=== PATIENT | female | born 1995 | race African-American/Black ===

== ENCOUNTER 2025-03-01 09:08 | Emergency (ER) | payer OTHER, SELFPAY ==
--- NOTE | ~2025-03-01 | US_ITS ---
EXAMINATION: US FIRST TRIMESTER OB HISTORY: abd pain, beta quant + TECHNIQUE: Endovaginal scanning was performed. FINDINGS: There is a single intrauterine . There is a hypoechoic area adjacent to the gestational sac measuring 7 x 5 x 15 mm which likely represents a small subchorionic hemorrhage. AUA = 6 weeks 4 days JULIANNE(AUA) = 10/22/2025 LMP = 01/20/2025 GA(LMP) = 5 weeks 5 days JULIANNE(LMP) = 10/27/2025 CRL: 0.63 cm Yolk Sac: seen FHR: 110 bpm Right ovary: The right ovary measures 3.7 x 2.1 x 2.5 cm and is unremarkable. There is a small amount of free fluid in the right adnexa. Left ovary: The left ovary measures 2.5 x 1.4 x 2.0 cm and is unremarkable. Cul-de-sac: No free fluid US/US OB <= 14 weeks fetus IMPRESSION: Single, live intrauterine of estimated gestational age 6 weeks, 4 days. Small subchorionic hemorrhage. Follow-up is recommended. Electronically signed by: Emigdio Angel MD 03/01/2025 03:15 PM EDT
[2025-03-01 09:13] VITALS: BP 104/57; PULSE 64; RESP 16; TEMP 36.8; O2SAT 100; BMI 22.7
[2025-03-01 09:55] LABS: IDNOW Serial# 08D9AD1C; Influenza B2 Negative (Negative)
[2025-03-01 09:55] LABS: COVID-19 Test Negative (Negative); IDNOW Serial# 6674DD1D
--- NOTE | 2025-03-01 11:17 | ED.GENADULT ---
HPI - General Adult General Chief complaint: Upper Respiratory Symptoms Stated complaint: Cough, sweating Time Seen by Provider: 03/01/25 11:20 Source: patient and RN notes reviewed Mode of arrival: ambulatory Limitations: no limitations History of Present Illness ED Provider: Griselda Gutierrez PA-C [facility] narrative: This is a 29-year-old female who presents emergency department with concerns of cough, congestion, nausea, vomiting, over the last week. She states that her last menstrual period was about 1 month ago. She does report possible chance of . She denies any abnormal vaginal bleeding or discharge. She is sexually active. No other complaints or concerns at this time. MD complaint: Nausea, cough Onset (ago): week(s) Pain Consistency: constant Relieving factors: none Exacerbating factors: none Associated symptoms: denies other symptoms Treatments prior to arrival: none Related Data Allergies Allergy/AdvReac Type Severity Reaction Status Date / Time No Known Allergies Allergy Verified 03/01/25 09:15 Review of Systems Review of Systems: Constitutional : No Fever, No Chills ENT/Mouth : No sore throat, No Rhinorrhea Eyes: No Eye Pain, No Swelling, No Redness Cardiovascular : No Chest Pain, No SOB Respiratory : + Cough, No Sputum Gastrointestinal : + Nausea, +Vomiting, No Diarrhea, No abdominal Pain Genitourinary : No Dysuria, No Hematuria Musculoskeletal : No joint pain, No Myalgias, No Joint Swelling Skin : No Skin Lesions Neuro : No Weakness, No Numbness, No Headache All other systems reviewed and are negative Yes all other systems are reviewed and are negative Constitutional: Constitutional: Reports as per [facility] Social History Social History Alcohol intake: current Alcohol intake frequency: a few times a month Smoked in Last 30 Days: No Use of substances other than those prescribed or required for medical reasons: Yes Substance Use Type: IV Drugs Advance Directives: No Advance Directives Information Provided: Yes Physical Exam ED Vital Signs: Vital Signs - 24 hr 03/01/25 09:13 03/01/25 11:52 Temperature 98.2 F 97.3 F Pulse Rate 64 60 Respiratory Rate 16 20 Blood Pressure 104/57 L 102/54 L Pulse Oximetry 100 100 Oxygen Delivery Method Room Air Room Air BMI result Body Mass Index 22.7 Const General: cooperative, comfortable and no acute distress Orientation/consciousness: patient oriented x3 Limitations: no limitations HENMT Head: Yes normal to inspection, Yes normocephalic and Yes atraumatic Ears: hearing grossly normal bilaterally General nose exam: Normal external nose present Face and sinus: Yes normal facial exam Mouth: Normal oral and palatal mucosa present, oropharynx normal and moist mucous membranes Throat: Yes posterior oropharynx normal Eyes General: appearance normal, both eyes and all related structures Eyelids: Yes eyelids normal Conjunctivae: conjunctivae normal Sclerae: sclerae normal Pupils: Equal, round and reactive pupils present EOM: EOMs intact bilaterally Neck Neck: Yes normal visual inspection, Yes full ROM and Yes no lymphadenopathy Lymphatic: no lymphadenopathy noted Chest Chest palpation & inspection: normal inspection of the chest Resp Effort & Inspection: normal respiratory effort and able to speak in complete sentences Auscultation: clear to auscultation bilaterally, no crackles, no rales, no rhonchi and no wheezes Cardio Rate: regular rate Rhythm: regular rhythm Heart sounds: S1 normal heart sound present and S2 normal heart sound present GI Other: Abdomen is soft, with mild tenderness palpation in the suprapubic region. Inspection: Yes normal to inspection Skin General skin exam: no rashes or lesions noted Trauma: no lacerations or abrasions Wounds: no wounds Neuro General: patient oriented x3 and moves all extremities Cranial nerves: Yes Equal, round and reactive pupils present Extrem General: Yes normal to inspection Right upper extremity: normal to inspection Left upper extremity: normal to inspection Right lower extremity: normal to inspection Left lower extremity: normal to inspection Course Course Course Narrative: This is an RME: Additional HPI, ROS, PE not included below will be deferred to primary provider. RME assessment and note performed by: Griselda Gutierrez PA-C This is a [id number], with no known medical problems, who presents to the ER with concerns of cough, cold sweats, nausea, vomiting, chills, decreased appetite. Also reporting diffuse body aches. Unable to keep anything down. Also endorsing epigastric pain. No diarrhea. No sick contacts. Plan: Labs, UA, IVF, IV zofran Medications Administered Discontinued Medications Generic Name Dose Route Start Last Admin Trade Name Freq PRN Reason Stop Dose Admin Sodium Chloride 1,000 mls @ 999 mls/hr 03/01/25 11:18 03/01/25 12:42 Ns IV 03/01/25 12:18 Infused .Q1H1M ONE Infusion Sodium Chloride 1,000 mls @ 999 mls/hr 03/01/25 12:30 03/01/25 13:55 Ns IV 03/01/25 13:30 Infused .Q1H1M ONE Infusion Ondansetron HCl 4 mg 03/01/25 11:18 03/01/25 11:29 Ondansetron Hcl 4 Mg/2 Ml Vial IVPUSH 03/01/25 11:19 4 mg ONCE ONE Administration Medical Decision Making Medical Decision Making [facility] Narrative: This is a 29-year-old female who presents emergency department with complaints of cough, congestion, sweats, nausea and vomiting. Also reporting some suprapubic pain. She states that she has been unable to tolerate p.o. secondary to nausea and vomiting. Differential diagnoses include electrolyte derangement, gastritis, gastroenteritis, , UTI. Labs were obtained, no leukocytosis, stable H&H, chemistry revealing no significant electrolyte derangement. She was treated with a dose of IV Zofran and IV fluids. Turns out that patient is straining . She was on aware that this was the case. Given that she does have some suprapubic pain, OB ultrasound ordered to rule out ectopic . Patient returns back from ultrasound with out the results. She states that she must leave. I discussed with patient that we can not guarantee that without the radiologist reading that report that there was no issue with the fetus. We can not confirm location of the fetus. She states that the heavy equipment service technician had told her that everything looked good and she would like to be discharged now. I discussed with patient that she will be leaving against medical advice. I state that we can not guarantee that this is a intrauterine and that it would be in her best interest to stay to confirm that there is no problems with the . She states that she must leave she understands the risks and consequences of leaving without completing treatment. Advised follow-up with OBGYN. She is feeling much better. She understands and agrees with plan. Patient stable for discharge. Differential Diagnosis Differential Diagnoses: The differential diagnosis associated with the presentation includes See above Admission/Observation Consideration of admission/observation: Escalation of care including admission/observation considered Lab Data [facility] Lab Attestation statement: I reviewed the patient's lab results. See [facility] 03/01/25 11:28 03/01/25 11:28 Labs: Lab Results 03/01/25 03/01/25 03/01/25 Range/Units 09:16 09:19 11:28 WBC 7.7 (4.8-10.8) X10*3/uL RBC 4.41 (4.20-5.50) X10*6/uL Hgb 12.7 (12.0-16.0) g/dl Hct 36.9 L (37.0-47.0) % MCV 83.7 (80.0-98.0) fL MCH 28.8 (27.0-33.0) pg MCHC 34.4 (31.0-35.0) g/dl RDW 13.7 (11.0-16.0) % Plt Count 280 (160-400) X10*3/uL MPV 9.6 (9.4-12.3) fL Immature Gran % (Auto) 0.3 (0.0-0.4) % Neut % (Auto) 84.4 H (45-73) % Lymph % (Auto) 8.9 L (20-40) % [place] % (Auto) 5.7 (2-11) % Eos % (Auto) 0.3 (0-4) % Baso % (Auto) 0.4 (0-2) % Lymph # (Auto) 0.7 L (1.2-4.9) X10*3/uL [place] # (Auto) 0.4 (0.1-1.2) X10*3/uL Eos # (Auto) 0.0 (0.0-0.4) X10*3/uL Baso # (Auto) 0.0 (0.0-0.2) X10*3/uL Abs Immat Gran (auto) 0.02 (0.00-0.03) X10*3/uL Absolute Neuts (auto) 6.5 (2.0-8.3) x10*3/uL Absolute Nucleated RBC 0.000 (0.0-0.012) X10*3/uL Nucleated RBC % (auto) 0.0 (0.0-0.2) /100WBC Sodium 137 (135-145) mmol/L Potassium 3.5 (3.3-5.1) mmol/L Chloride 104 (96-108) mmol/L Carbon Dioxide 25 (22-29) mmol/L Anion Gap 12 (12-20) BUN 8 L (9-16) mg/dL Creatinine 0.68 (0.5-1.4) mg/dL Estim Creat Clear Calc 100.9 Estimated GFR > 60 Random Glucose 93 (60-115) mg/dL Calcium 9.4 (8.4-10.2) mg/dL Magnesium 2.1 (1.6-2.6) mg/dL Total Bilirubin 0.3 (0.0-1.0) mg/dL Direct Bilirubin 0.1 (0.0-0.5) mg/dL AST 17 (5-31) U/L ALT 16 (0-31) U/L Alkaline Phosphatase 70 (39-117) U/L Total Protein 7.7 (6.5-8.0) g/dL Albumin 4.7 (3.5-5.0) g/dL Lipase 7 L (8-78) U/L Beta HCG, Quant 59057 mIU/mL Urine Color Urine Appearance Urine pH (5.0-9.0) Ur Specific [place] (1.005-1.025) Urine Protein (Neg-Trace) mg/dL Urine Glucose (UA) (Negative) mg/dL Urine Ketones (Negative) mg/dL Urine Blood (Negative) Urine Nitrite (Negative) Ur Leukocyte Esterase (Negative) Urine RBC (0-2) /HPF Urine WBC (0-5) /HPF Ur Squamous Epith Cells (0-2) /HPF Urine Bacteria (None Seen) Hyaline Casts (0-2) /LPF COVID-19 (KRISTAL) Negative (Negative) COVID-19 Clin Com See Note Influenza Type A (SHAWNA) Negative (Negative) Influenza Type B (SHAWNA) Negative (Negative) Influenza A & B Note See Note 03/01/25 Range/Units 11:37 WBC (4.8-10.8) X10*3/uL RBC (4.20-5.50) X10*6/uL Hgb (12.0-16.0) g/dl Hct (37.0-47.0) % MCV (80.0-98.0) fL MCH (27.0-33.0) pg MCHC (31.0-35.0) g/dl RDW (11.0-16.0) % Plt Count (160-400) X10*3/uL MPV (9.4-12.3) fL Immature Gran % (Auto) (0.0-0.4) % Neut % (Auto) (45-73) % Lymph % (Auto) (20-40) % [place] % (Auto) (2-11) % Eos % (Auto) (0-4) % Baso % (Auto) (0-2) % Lymph # (Auto) (1.2-4.9) X10*3/uL [place] # (Auto) (0.1-1.2) X10*3/uL Eos # (Auto) (0.0-0.4) X10*3/uL Baso # (Auto) (0.0-0.2) X10*3/uL Abs Immat Gran (auto) (0.00-0.03) X10*3/uL Absolute Neuts (auto) (2.0-8.3) x10*3/uL Absolute Nucleated RBC (0.0-0.012) X10*3/uL Nucleated RBC % (auto) (0.0-0.2) /100WBC Sodium (135-145) mmol/L Potassium (3.3-5.1) mmol/L Chloride (96-108) mmol/L Carbon Dioxide (22-29) mmol/L Anion Gap (12-20) BUN (9-16) mg/dL Creatinine (0.5-1.4) mg/dL Estim Creat Clear Calc Estimated GFR Random Glucose (60-115) mg/dL Calcium (8.4-10.2) mg/dL Magnesium (1.6-2.6) mg/dL Total Bilirubin (0.0-1.0) mg/dL Direct Bilirubin (0.0-0.5) mg/dL AST (5-31) U/L ALT (0-31) U/L Alkaline Phosphatase (39-117) U/L Total Protein (6.5-8.0) g/dL Albumin (3.5-5.0) g/dL Lipase (8-78) U/L Beta HCG, Quant mIU/mL Urine Color Dark Yellow Urine Appearance Cloudy Urine pH 6.5 (5.0-9.0) Ur Specific [place] >= 1.030 H (1.005-1.025) Urine Protein 30 (1+) H (Neg-Trace) mg/dL Urine Glucose (UA) Negative (Negative) mg/dL Urine Ketones 80 (Negative) mg/dL Urine Blood Negative (Negative) Urine Nitrite Negative (Negative) Ur Leukocyte Esterase Small (1+) H (Negative) Urine RBC 0-2 (0-2) /HPF Urine WBC 0-5 (0-5) /HPF Ur Squamous Epith Cells 11-20 (0-2) /HPF Urine Bacteria 3+ (None Seen) Hyaline Casts 6-10 (0-2) /LPF COVID-19 (KRISTAL) (Negative) COVID-19 Clin Com Influenza Type A (SHAWNA) (Negative) Influenza Type B (SHAWNA) (Negative) Influenza A & B Note Discharge Plan Discharge Clinical Impression: , Nausea & vomiting Patient Disposition: Left Against Medical Advice Instructions: (ED), Acute Nausea and Vomiting (ED) Additional Instructions: You were seen in the emergency department and you were found to have a positive test. You did not want to stay for your ultrasound, we are unable to rule in or rule out if this is an intrauterine . Not knowing this can have life-threatening consequences and or . I strongly urge you to stay however you understand the risks and consequences of leaving prior to completing treatment. I encouraged you to follow-up with an OBGYN. If any new or worsening symptoms occur including but not limited to severe abdominal pain, please return for re-evaluation. Stand Alone Forms: Against Medical Advice Interventions: ED Discharge Assessment Last Done: 03/01/25 14:45 Discharge Date/Time: 03/01/25 14:45 Print Language: Unknown
[2025-03-01 11:31] LABS: MANUAL DIFF FLAG NO
[2025-03-01 11:36] LABS: Hematocrit 36.9 % (37.0-47.0); Hemoglobin 12.7 g/dl (12.0-16.0); Imm Gran Abs Auto 0.02 X10*3/uL (0.00-0.03); Imm Gran Pct Auto 0.3 % (0.0-0.4); Lymphocytes Absolute Auto 0.7 X10*3/uL (1.2-4.9); Mean Corpuscular HGB Conc 34.4 g/dl (31.0-35.0); Mean Corpuscular Hemoglobin 28.8 pg (27.0-33.0); Mean Corpuscular Volume 83.7 fL (80.0-98.0); NRBC Abs Auto 0.000 X10*3/uL (0.0-0.012); NRBC Pct Auto 0.0 /100WBC (0.0-0.2); Platelet Count 280 X10*3/uL (160-400); Red Blood Count 4.41 X10*6/uL (4.20-5.50); White Blood Count 7.7 X10*3/uL (4.8-10.8)
[2025-03-01 11:46] LABS: Appearance Urine Cloudy; Glucose Urine UA Negative (Negative); PH 6.5 (5.0-9.0); Specific Gravity - Urine >= 1.030 (1.005-1.025); UMIC TRIGGER UACC YES
[2025-03-01 11:52] VITALS: BP 102/54; PULSE 60; RESP 20; TEMP 36.3; O2SAT 100
[2025-03-01 12:01] LABS: UACC Culture Trigger YES
[2025-03-01 12:02] LABS: Alanine Aminotransferase 16 U/L (0-31); Albumin Level 4.7 g/dL (3.5-5.0); Alkaline Phosphatase 70 U/L (39-117); Anion Gap 12 (12-20); Aspartate Amino Transferase 17 U/L (5-31); Blood Urea Nitrogen 8 mg/dL (9-16); Calcium 9.4 mg/dL (8.4-10.2); Carbon Dioxide 25 mmol/L (22-29); Chloride 104 mmol/L (96-108); Creatinine Clr Calc Pharmacy 100.9; Estimated Glomerular Filt Rate > 60; Lipase 7 U/L (8-78); Magnesium 2.1 mg/dL (1.6-2.6); Potassium 3.5 mmol/L (3.3-5.1); Sodium 137 mmol/L (135-145); Total Protein 7.7 g/dL (6.5-8.0)
--- NOTE | 2025-03-01 13:13 | PC.NURSE ---
pt reports feeling better after the medication, no vomiting since in the treatment chair, respirations even and unlabored, skin appropriate for ethnicity, pt reports epigastric pain for a couple of days, abd soft but slightly tender
--- NOTE | 2025-03-01 14:00 | PC.NURSE ---
pt went to [facility]
[2025-03-01 14:45] VITALS: BP 102/54; PULSE 60; RESP 20; TEMP 36.3; O2SAT 100
== END 2025-03-01 14:45 | disposition left against medical advice (07) ==
PROVIDERS: Physician Assistant Medical; Emergency Provider Emergency Medicine
DX: O26.891 Other specified pregnancy related conditions, first trimester (principal); Z3A.01 Less than 8 weeks gestation of pregnancy; R05.9 Cough, unspecified; R11.2 Nausea with vomiting, unspecified; Z53.29 Procedure and treatment not carried out because of patient's decision for other reasons
CPT/HCPCS: 36415; 76801; 76802; 80048; 80076; 81001; 83690; 83735; 84702; 85025; 87086; 87502; 87635; 96361; 96374; 99284; J2405

== ENCOUNTER → 2025-03-01 12:29 | Outpatient (BNV) | payer MEDICAID, SELFPAY | PROVIDERS: Emergency Provider Emergency Medicine; Visit Provider Radiology Diagnostic Radiology | DX: O46.91 Antepartum hemorrhage, unspecified, first trimester (principal); Z3A.01 Less than 8 weeks gestation of pregnancy | CPT/HCPCS: 76801 ==